=== PATIENT | female | born 1935 | race Caucasian/White ===

== ENCOUNTER → 2016-09-14 | Outpatient (CLI) | payer MEDICARE, OTHER ==
[~2016-09-14] MED LIST: BARIUM SULFATE 135 ML (E-Z HD) PO ONE
--- NOTE | 2016-09-14 17:16 | RADRPT ---
PROCEDURE: Video-fluoroscopy swallowing study. CLINICAL INDICATION: Dysphagia. TECHNIQUE: Fluoroscopic guided video swallowing study was done in conjunction with the speech ther apist. The study was confined to the oral, pharyngeal, and cervical phases of the swallowing mechani sm. 3.2 minutes of fluoroscopy time was used. COMPARISON: No prior study is available for comparison. FINDINGS: There is penetration during swallowing nectar-thick liquids. There is aspiration during swallowing of thin liquids. IMPRESSION: 1. Aspiration during swallowing thin liquids. 2. Please refer to the speech therapist's recommendations for future feedings. RPTAT: QQ .Jhon Blancas MD, MD Date Time Electronically viewed and signed by .Jhon Blancas MD, MD on 09/14/2016 17:15 .R/
== END | disposition home or self-care (01) ==
LOC: RAD 12:28
PROVIDERS: ATTEND Internal Medicine
DX: R13.10 Dysphagia, unspecified (principal)
CPT/HCPCS: 74230